=== PATIENT | female | born 1985 | race Caucasian/White ===

== ENCOUNTER → 2021-09-13 11:34 | Outpatient (CLI) | payer BC, SELFPAY ==
--- NOTE | 2021-09-13 11:40 | DI.US.S_ITS ---
PROCEDURE: US OB >= 14 WEEKS FETUS INDICATIONS: 20 WEEK ANATOMY SCAN OUTSIDE/PRIOR DATING DATA: Last menstrual period (LMP): 04/17/2021 LMP-based estimated date of delivery (JOSELYN): 01/22/2022 First dating scan (date and location): 09/13/2021 Estimated date of delivery (JOSELYN) from first dating scan: 01/20/2022 The calculations are made using the study generated JOSELYN of 01/20/2022. TECHNIQUE: Real-time scanning was performed of the fetus, with image documentation and biometric measurements. COMPARISON: None. FINDINGS: General: A single living intrauterine gestation is present. Presentation: Vertex Placenta: Placental position is posterior fundal, without previa. Delete Amniotic fluid index: 11.9 cm, normal range is 5-24 cm. Single deepest vertical pocket is 3.7 cm. heart rate: 173 beats per minute. Maternal cervical canal: 5 cm long. Normal lower limit is 2.5 cm. biometrics: Biparietal diameter: 5 cm, 21 weeks, 1 day. Head circumference: 18.9 cm, 21 weeks, 1 day. Abdominal circumference: 16.5 cm, 21 weeks, 4 days. Femur length: 3.8 cm, 22 weeks, 1 day. Clinically estimated gestational age: Not available Composite gestational age from present scan: 21 weeks, 4 days Estimated weight and percentile: 445 grams, 68 percent. Anatomic survey: Neuro: Ventricles are non-dilated at less than 10 mm. Cisterna magna is normal at 3-11 mm. Cerebellum is normal in size and morphology. Nuchal skin fold: Normal at less than 6 mm between 14-21 weeks gestational age. Face: Nose and lips, facial profile are normal. Spine: No evidence for spina bifida. Heart: 4-chambered heart is present, with normal ventricular outflow tracts. Diaphragm: Diaphragm is intact. Stomach: Left-sided stomach is present. Kidneys: No hydronephrosis. Normal is less than 5 mm in 2nd trimester, less than 7 mm in 3rd trimester. Cord: 3-vessel cord has orthotopic insertion. Bladder: Normal in size. Extremities: All 4 extremities identified. IMPRESSION: 1. Single live intrauterine with fetus in vertex presentation. heart rate is 173 beats per minute. Estimated gestational age is 21 weeks, 4 days. Normal amount of amniotic fluid. 2. Normal anatomic survey. We strive to produce accurate, complete, and clear reports of imaging services. To assist us in improving patient care, this report was composed using standard report templates and voice recognition software. Therefore, it may contain abnormal punctuation, insertions and/or omissions. Occasional wrong-word or sound-alike substitutions may occur. Though we review the report and make efforts to correct it, we do recommend that the report be read carefully in proper context to recognize any text inaccuracies. Dictated by: Marcio Guzman M.D. on 09/13/2021 at 14:38 Approved by: Marcio Guzman M.D. on 09/13/2021 at 14:41
== END ==
PROVIDERS: Referring Provider Nurse Practitioner Obstetrics & Gynecology; Visit Provider Nurse Practitioner Obstetrics & Gynecology
DX: Z36.89 Encounter for other specified antenatal screening (principal); Z3A.21 21 weeks gestation of pregnancy
CPT/HCPCS: 76811

== ENCOUNTER 2021-12-22 12:06 | Inpatient (IN) | payer OTHER, SELFPAY ==
--- NOTE | 2021-12-22 12:57 | PM.OBHP.1 ---
OB HPI Date/Time Date of admission: 12/22/21 Date Patient Seen: 12/22/21 Time Patient Seen: 12:57 History of Present Condition Chief complaint: water broke : 1 Para: 0 Estimated Date of Delivery: 01/22/22 Estimated Gestational Age (weeks): 35.4 Narrative: SELWYN SERRA is a 36 year old female @ [id number] by LMP and 11wk US who presents for evaluation of PPROM. Noticed small amounts of leaking, clear fluid at 0920. Amounts of fluid has since increased and contractions started around 1120. Now breathing through contractions every 6-7 minutes. +FM. Uncomplicated PN care w/ CNM. Desires low intervention . History of Present care: good care, initiated at week # (11), number of visits (5) and pounds weight gain (29) Dating criteria: LMP confirmed by 1st trimester US Ultrasounds: normal mid trimester US Obstetrical complications: none Medical complications: none Preadmission Labs Blood type: A (+) positive -: Antibody screen: negative, GBS status: unknown, HBsAG: negative, HIV: negative and RPR/VDLR: negative -: Chlamydia screen: not detected and Gonorrhea screen: not detected -: Rubella: immune and Varicella: immune HCT: 37.9 HCAB: negative PAP: Normal Narrative: Declined gtt. Had 2wk QID BGs-WNL Evaluation Evaluation Baseline heart rate: 155 Variability: Moderate (11-25) monitor accelerations: Present Monitor Decelerations: Absent Contraction Frequency (minutes): 6 Uterine Contraction Intensity: Mild Status: Category l Comments: CE deferred [facility] Medical History (Updated 12/22/21 @ 13:11 by Evelyn Gaston CNM) Anxiety Depression Family History (Updated 12/22/21 @ 13:12 by Evelyn Gaston CNM) Other Depression Social History (Updated 12/22/21 @ 13:12 by Evelyn Gaston CNM) marital status: unmarried,living together household members: significant other lives independently: Yes housing: other pets and animals: No education level: master's degree occupational status: employed Smoking Status: Never smoker substance use type: does not use Meds Home Medications and Allergies Home Medications Medication Instructions Recorded Confirmed Type ondansetron 8 mg disintegrating mg QAM 03/19/22 History tablet Allergies Allergy/AdvReac Type Severity Reaction Status Date / Time No Known Drug Allergies Allergy Verified 12/22/21 13:02 Review of Systems Review of Systems ROS: Yes All systems reviewed with the patient and are negative except as otherwise documented OB Exam Narrative Exam Narrative: VS: BP 119/74mmHg, HR 98bpm, T 36.6C Temporal Resp Effort & Inspection: normal respiratory effort Auscultation: clear to auscultation bilaterally Cardio Rate: regular rate Rhythm: regular rhythm Heart Sounds: S1 normal and S2 normal Presentation: vertex (verified by ultrasound) Objective Labs Result Diagrams: 12/22/21 13:10 Labs: GBS PCR pending Assessment and Plan Assessment and Plan Assessment and Plan narrative: A: nullipara PPROM x 4 hours without sx of infection Cat I FHR GBS prophylaxis indicated P: Admit, routine orders w/ PCN loading dose. Continuous EFM. Betamethasone 12mg IM ordered for late . Expectant management of labor, given progressively strengthening ctx and current pattern. Consulted Dr. Lancaster for late and she agreed with plan of care and CNM to manage. Counseled patient on possibility of need for NICU transfer PP, though this is not for sure. Labor support PRN. Reassess in 4 hours. Plan CE after 2 hours of strong contractions.
[2021-12-22 12:59] VITALS: BP 133/77
[2021-12-22 13:04] LABS: COVID19 -Nasal RAPID Negative (Negative)
[2021-12-22] MEDS: BETAMETHASONE 30 MG/5 ML MDV 12 MG IM (13:22)
[2021-12-22] MEDS: PENICILLIN G POTASSIUM 5,000,000 UNIT in DEXTROSE 5% IN WATER 250 ML IV (13:23)
[2021-12-22] MEDS: LACTATED RINGERS 1,000 ML 100 ML IV (13:27)
[2021-12-22 13:31] LABS: Add Manual Diff / Slide Review NO; Basophils Absolute Auto 0 /uL (0-100); Basophils Percent Auto 0.3 % (0-2); Eosinophils Absolute Auto 0 /uL (0-450); Eosinophils Percent Auto 0.4 % (2-4); Hematocrit 37.5 % (36-46); Hemoglobin 12.8 g/dL (12.0-16.0); Lymphocytes Absolute Auto 1600 /uL (1100-4500); Lymphocytes Percent Auto 14.3 % (25-40); Mean Corpuscular Hemoglobin 28.8 PG (26-34); Mean Corpuscular Volume 84.6 fL (80-100); Monocytes Absolute Auto 600 /uL (0-900); Monocytes Percent Auto 5.6 % (3-14); Neutrophils Absolute Auto 8800 /uL (1500-7000); Neutrophils Percent Auto 79.4 % (50-75); Platelet Count 264 X10^3/uL (150-400); Red Blood Cell Count 4.43 X10^6/uL (4.0-5.2); Red Cell Distribution Width 13.5 % (11.6-14.8); White Blood Cell Count 11.1 X10^3/uL (4.5-11.0)
[2021-12-22 13:41] LABS: Strep Grp B PCR POS for Grp B Strep
[2021-12-22] MEDS: PENICILLIN G POTASSIUM 3,000,000 UNIT/50 ML FROZ.PIGGY 100 UNIT IV (17:32)
--- NOTE | 2021-12-22 17:33 | PM.OBPNLAB ---
Date/Time Date Patient Seen: 12/22/21 Time Patient Seen: 16:45 Pain Control Pain control: tolerating well Comments: Roxie has been breathing through and moaning with strong contractions for 2 hours. Continues to leak clear fluid. Has tried the tub and is now on hands and knees w/ CUB on the floor. Partner and father remain present and supportive. Pelvic Exam Dilation (cm): 5.5 Effacement (%): 90 station: -2 Amniotic membrane status: Leaking Contractions Contractions on admission: irregular Monitor mode: External Pitocin rate (mU/min): 0 Contraction frequency (min): 2 Contraction duration (min): 1 Contraction pattern: Regular Contraction intensity: Mild Status status: Category l Heart Rate Baseline: 155 Monitor Accelerations: Present Monitor Decelerations: Absent Monitor Variability: Moderate Assessment and Plan Assessment: active labor Plan: continuous present management Comments: GBS PCR resulted POSITIVE so penicillin will continue Q4 hours. Continuous labor support. Notified Peds OC/ of laboring PPROM and will call again when pushing. RT at . Reassess in 4 hours or sooner, PRN.
--- NOTE | 2021-12-22 18:42 | PM.OBPRVD ---
Events: Premature Rupture Membrane Labor & Delivery Delivery date: 12/22/21 Intrapartal Events: None Cervical ripening method: none Induction method: none Delivery monitor: external FHT and external uterine Route of delivery: Episiotomy description: None L&D Laceration Description: Vaginal - 1st Degree Estimated blood loss (mL): 400 Anesthesia Type: None Narrative: Roxie labored well without anesthesia or augmentation. Presumed complete with spontaneous urge to push and perineal bulging was noted shortly after. was notified of second stage and RT was called to stand-by. NSVB of a viable baby girl on KIRIT position over an intact perienum. [place] was passed through her legs and Roxie was assisted from hands and knees to es richardson's position with her daughter in her arms. 30 units of pitocin in 500mL LR was started at 250mL/hr for AMTSL right before cord clamping. After cessation of pulsation, the cord was double clamped by CNM and cut by FOB. Hospital cord blood hold sample was collected. Gentle cord traction and single maternal push led to spontaneous, Schultze delivery of an apparently intact placenta, membranes and 3VC. Both mother and baby stable and skin to skin as I left the room. [place] Baby 1: gender: Female Presentation: vertex Position: Left Occiput Anterior Placenta delivery description: Spontaneous Cord Vessel Description: 3 Vessels score (1 min): 8 score (5 min): 8 weight: 2.64 kg Plan for aftercare: Routine care
[2021-12-22] MEDS: OXYTOCIN PREMIX 30 UNIT/500 ML PLAST..BAG 200 UNIT IV (18:43)
[2021-12-22] MEDS: DERMOPLAST SPRAY 20% 60 ML 1 SPRAY TOP (19:32)
[2021-12-22] MEDS: ACETAMINOPHEN 325 MG TABLET 650 MG PO (19:32)
[2021-12-22] MEDS: KETOROLAC 30 MG/ML VIAL IV (19:32)
[2021-12-23] MEDS: ACETAMINOPHEN 325 MG TABLET 650 MG PO ×2 (03:08→11:20)
[2021-12-23] MEDS: DOCUSATE 100 MG CAPSULE PO (10:49)
[2021-12-23] MEDS: DERMOPLAST SPRAY 20% 60 ML 1 SPRAY TOP (10:51)
--- NOTE | 2021-12-23 15:43 | P.DS_ITS ---
Discharge Providers Provider Date of admission: 12/22/21 12:06 Discharge Date: 12/23/21 Primary care physician: YANI Guzman Consults: 12/23/21 18:39 Consult to [employer] Farm Manager Routine Comment: Discharge provider: Evelyn Gaston CNM Summary Hospital Course Date Patient Seen: 12/23/21 Time Patient Seen: 16:15 Diagnoses: PPROM, NSVB w/ 1st degree, GBS positive Hospital Course: PPD1 s/p NSVB w/ 1st degree vaginal laceration. Voiding, ambulating and independently. Tolerating a general diet. Declining pain medica tion. Bleeding is light without clots. Desires discharge to room in with her with less nursing care. Partner remains present and supportive. Peripartum Data Delivery Method: Natural Vaginal Laceration Description: Vaginal - 1st Degree complications: none Discharge Diagnosis (1) premature rupture of membranes (PPROM) delivered, current hospitalization: Status: Acute (2) First degree perineal laceration during delivery: Status: Acute Status at Discharge Cognitive/behavioral status at discharge: oriented and calm Functional status at discharge: independent ambulation Overall status at discharge: patient is progressing back to baseline Time Spent with Patient Time attestation: Total time spent providing and/or coordinating discharge services: Time spent: Less than 30 minutes Objective Labs Result Diagrams: 12/22/21 13:10 Exam Vital Signs (past 8 hours): BP 128/73mmHg, HR 87bpm, RR 16/min, T 97.0F Temporal Other: Fundus firm @ u-1, lochia light, without clots. Perineum intact (1st degree vaginal laceration not visualized). Psych Appearance: well kempt Affect: normal affect Discharge Plan Discharge Plan Patient Disposition: Home Provider Discharge Comment: room in with her baby Discharge orders & Medications Prescriptions: New ibuprofen 600 mg Tablet 600 mg PO Q6HR PRN (Reason: Pain, Mild (1-3)) 14 Days Qty: 60 0RF Discontinued ondansetron 8 mg tablet,disintegrating QAM 0RF Label Comments: dissolve 1 tablet ON TONGUE every 6 hours Follow up/Referrals: Evelyn Gaston CNM [Advanced Clinical Study Manager] - (Follow-up by Telehealth 01/04/22 @ 1010am Follow-up in office 02/01/22 @ 1100am ) Diet/Activity/Treatments Diet: Diet as Tolerated and Regular Activity: pelvic rest x 6 weeks Skin/Wound/Dressing Care Report to your healthcare provider any signs of infection, such as:: chills, fever, increased pain, unusual drainage and unusual redness Visit Report/Discharge Packet Instructions: Depression
[2021-12-23 17:18] VITALS: BP 89/50; PULSE 51; RESP 16; TEMP 37.2
== END 2021-12-23 19:23 | disposition home or self-care (01) | DRG 807 ==
PROVIDERS: Admitting Provider Nurse Practitioner Obstetrics & Gynecology; Referring Provider Nurse Practitioner Obstetrics & Gynecology; Visit Provider Nurse Practitioner Obstetrics & Gynecology
DX: O42.013 Preterm premature rupture of membranes, onset of labor within 24 hours of rupture, third trimester (principal); Z37.0 Single live birth; Z3A.35 35 weeks gestation of pregnancy; O99.824 Streptococcus B carrier state complicating childbirth; O70.0 First degree perineal laceration during delivery; Z20.822 Contact with and (suspected) exposure to COVID-19
CPT/HCPCS: 36415; 59050; 76815; 84112; 85025; 86850; 86900; 86901; 87635; 87653; 96372; C9803; G0379; J0702; J1885; J2540; J2590